=== PATIENT | male | born 1980 | race Hispanic/Latino ===

== ENCOUNTER 2017-12-20 11:10 | Emergency (ER) | payer MEDICARE, OTHER ==
--- NOTE | 2017-12-20 11:51 | RAD ---
CHEST 1 VIEW: Date: 12/20/17 HISTORY: Emergency exam. COMPARISON: Exam from 2013. FINDINGS: There is a nodular density projecting over the right lung apex. Remainder of the lungs are clear. No focal air space consolidation, pneumothorax, or effusion. IMPRESSION: Nodular density projecting over right lung apex. Nonemergent follow-up 2 views of chest recommended When comparing to the [address], there is a prominent right anterior second rib costochondr al calcification and first rib costochondral calcification which are likely the source of these findi ngs. POS: [facility]
[2017-12-20 12:10] LABS: #Basophils 0.1 thou/uL (0.0-0.2); #Lymphocytes 2.2 thou/uL (1.20-3.40); #Monocytes 0.6 thou/uL (0.11-0.59); #Neutrophils 5.8 thou/uL (1.40-6.50); %Basophils 0.7 % (0.0-1.0); %Eosinophils 0.4 % (0.0-10.0); %Lymphocytes 24.9 % (21.0-51.0); %Monocytes 6.8 % (0.0-10.0); %Neutrophils 67.2 % (42.0-75.0); Hemoglobin 16.6 g/dL (14.0-18.0); Mean Corpuscular HGB CONC 33.4 g/dL (32.0-36.0); Mean Corpuscular Hemoglobin 30.5 pg (27.0-31.0); Mean Corpuscular Volume 91.5 fl (80.0-94.0); Mean Platelet Volume 8.4 fL (7.4-10.4); Platelet Count 301 thou/uL (130-400); RBC Distribution Width 12.2 % (11.5-14.5); Red Blood Cell (RBC) Count 5.44 mill/uL (4.70-6.10); White Blood Cell (WBC) Count 8.6 thou/uL (4.8-10.8)
[2017-12-20 12:30] LABS: ALT (SGPT) 19 U/L (8-55); AST (SGOT) 21 U/L (5-34); Albumin 5.1 g/dL (3.5-5.0); Alkaline Phosphatase 84 U/L (40-150); Anion Gap 13 mmol/L (10-20); BUN (Urea Nitrogen) 14 mg/dL (8.9-20.6); Bilirubin, Total 0.6 mg/dL (0.2-1.2); Calc. Creatinine Clearance 0 mL/min (70-130); Calcium 10.2 mg/dL (7.8-10.44); Carbon Dioxide 27 mmol/L (22-29); Chloride 104 mmol/L (98-107); Estimated GFR-MDRD 88; Globulin 3.5 g/dL (2.4-3.5); Glucose 104 mg/dL (70-105); Potassium 4.3 mmol/L (3.5-5.1); Protein, Total 8.6 g/dL (6.0-8.3); Sodium 140 mmol/L (136-145)
[2017-12-20 12:32] LABS: CKMB 0.6 ng/mL (0-6.6); Troponin I Less than 0.010 ng/mL (< 0.028)
--- NOTE | 2017-12-25 12:23 | EKG ---
Test Reason : Blood Pressure : / mmHG Vent. Rate : 076 BPM Atrial Rate : 076 BPM P-R Int : 124 ms QRS Dur : 088 ms QT Int : 362 ms P-R-T Axes : 088 046 033 degrees QTc Int : 407 ms Normal sinus rhythm Normal ECG Confirmed by RODDY KWAN M.D. ([id number]), assistant production editor [employer] ([id number] on 12/25/2017 12:22:55 PM Referred By: Confirmed By:RODDY KWAN M.D.
== END 2017-12-20 15:46 | disposition left against medical advice (07) ==
LOC: ERS 11:10
DX: Z53.21 Procedure and treatment not carried out due to patient leaving prior to being seen by health care provider (principal)
CPT/HCPCS: 36415; 71045; 80053; 82553; 84484; 85025; 93005